=== PATIENT | male | born 1950 | race Caucasian/White ===

== ENCOUNTER → 2017-01-06 | Outpatient (CLI) | payer MEDICARE ==
[~2017-01-06] MED LIST: AMLO10TA2 PO; AMOX1TAB64 PO; CIPR500T3 PO; FLUO20CA8 PO; FLUO20TA25 PO; GADOBUTROL 7.5 MMOL/7.5 ML VIAL ONE; HYDR-3240 PO; HYDR-3241 PO; HYDR-882 PO; LISI40TA PO; LISI5TAB7 PO; METR500T PO; NONE PER PT; OXYC-302 PO; POLY17PO5 PO
== END | disposition home or self-care (01) ==
LOC: CFH 13:24
PROVIDERS: ATTEND Nurse Practitioner
DX: I67.82 Cerebral ischemia (principal); G31.89 Other specified degenerative diseases of nervous system; G93.89 Other specified disorders of brain; R90.82 White matter disease, unspecified
CPT/HCPCS: 70553; A9585

== ENCOUNTER 2017-02-01 13:55 | Inpatient (IN) | payer MEDICARE ==
[~2017-02-01] VITALS: Ht 180.3 cm; Wt 73.6 kg
[~2017-02-01 13:55] MED LIST changes: -GADOBUTROL 7.5 MMOL/7.5 ML VIAL ONE
[2017-02-01] MEDS ORDERED: ONDANSETRON 2MG/ML, 2ML IVPush ONE ×2 (14:00→16:00)
[2017-02-01] MEDS ORDERED: SODIUM CHLORIDE FLUSH 10ML SYR IVF ONE ×2 (14:00→16:00)
[2017-02-01 14:29] LABS: HEMATOCRIT 49.5 % (39.2-51.8); HEMOGLOBIN 16.6 g/dL (13.7-18.0); WHITE BLOOD COUNT 9.7 x10^3/uL (3.4-10)
[2017-02-01] MEDS ORDERED: ONDANSETRON 2MG/ML, 2ML ONE ×2 (14:30→16:04)
[2017-02-01] MEDS ORDERED: PLEASE ENTER HEIGHT AND WEIGHT MC SCH (14:30)
[2017-02-01] MEDS ORDERED: HYDROmorphone 1 MG/ML, 1ML ONE ×3 (14:31→18:14)
[2017-02-01 14:37] LABS: ASPARTATE AMINO TRANSFERASE 14 U/L (15-37); BLOOD UREA NITROGEN 30 mg/dL (7-18)
[2017-02-01] MEDS: HYDROmorphone 1 MG/ML, 1ML IVPush PRN ×4 (14:37→22:21)
[2017-02-01] MEDS ORDERED: SODIUM CHLORIDE 0.9% 1,000ML IVBOLUS ONE ×2 (15:30→16:00)
[2017-02-01] MEDS ORDERED: SODIUM CHLORIDE 0.9% 1,000 ML IV ONE (15:46)
[2017-02-01] MEDS ORDERED: POTASSIUM CHLORIDE 20 MEQ in LACTATED RINGERS 1,000 ML IV SCH (17:30)
[2017-02-01 20:10] VITALS: BP 140/94
[2017-02-01] MEDS: ONDANSETRON 2MG/ML, 2ML IVPush PRN (20:59)
[2017-02-02] MEDS: HYDROmorphone 1 MG/ML, 1ML IVPush PRN ×5 (02:29→18:47)
[2017-02-02] MEDS: ONDANSETRON 2MG/ML, 2ML IVPush PRN ×3 (02:56→15:33)
[2017-02-02 03:00] VITALS: BP 142/95
[2017-02-02 05:59] LABS: HEMATOCRIT 43.3 % (39.2-51.8); HEMOGLOBIN 14.5 g/dL (13.7-18.0); WHITE BLOOD COUNT 8.4 x10^3/uL (3.4-10)
[2017-02-02 06:14] LABS: BLOOD UREA NITROGEN 39 mg/dL (7-18)
[2017-02-02 08:04] VITALS: BP 127/74
[2017-02-02] MEDS: LACTATED RINGERS 1,000 ML IV SCH ×2 (10:30→21:06)
[2017-02-02 13:13] VITALS: BP 135/81
[2017-02-02] MEDS: ACETAMINOPHEN 325 MG TABLET PO PRN (17:43)
[2017-02-02 18:52] VITALS: BP 138/79
[2017-02-02] MEDS ORDERED: ONDANSETRON 2MG/ML, 2ML IVPush PRN (21:00)
[2017-02-02] MEDS: HYDROmorphone 1 MG/ML, 1ML IV PRN (21:47)
[2017-02-03] MEDS: HYDROmorphone 1 MG/ML, 1ML IV PRN ×8 (01:53→20:46)
[2017-02-03 02:00] VITALS: BP 127/72
[2017-02-03 04:57] LABS: HEMATOCRIT 37.8 % (39.2-51.8); HEMOGLOBIN 12.4 g/dL (13.7-18.0); WHITE BLOOD COUNT 3.5 x10^3/uL (3.4-10)
[2017-02-03 05:08] LABS: BLOOD UREA NITROGEN 25 mg/dL (7-18)
[2017-02-03 06:55] VITALS: BP 133/82
[2017-02-03] MEDS: LACTATED RINGERS 1,000 ML IV SCH ×2 (07:17→16:30)
[2017-02-03 13:52] VITALS: BP 136/79
[2017-02-03 19:53] VITALS: BP 152/88
[2017-02-04] MEDS: HYDROmorphone 1 MG/ML, 1ML IV PRN ×3 (00:06→04:56)
[2017-02-04 01:55] VITALS: BP 128/72
[2017-02-04] MEDS: LACTATED RINGERS 1,000 ML IV SCH (02:55)
[2017-02-04] MEDS: ACETAMINOPHEN 325 MG TABLET PO PRN (04:59)
[2017-02-04 05:39] LABS: HEMATOCRIT 35.8 % (39.2-51.8); HEMOGLOBIN 12.1 g/dL (13.7-18.0); WHITE BLOOD COUNT 3.7 x10^3/uL (3.4-10)
[2017-02-04 05:50] LABS: BLOOD UREA NITROGEN 14 mg/dL (7-18)
[2017-02-04 06:37] VITALS: BP 154/87
[2017-02-04 12:37] VITALS: BP 145/60
== END 2017-02-04 12:50 | disposition home or self-care (01) | DRG 388 ==
LOC: ED 16:03 → EDIP 17:18 → 4NOR 18:42
PROVIDERS: ADMIT Colon & Rectal Surgery; ATTEND Colon & Rectal Surgery
DX: K56.60 Unspecified intestinal obstruction (principal); N17.0 Acute kidney failure with tubular necrosis; E86.0 Dehydration; I10 Essential (primary) hypertension; K66.0 Peritoneal adhesions (postprocedural) (postinfection); N28.9 Disorder of kidney and ureter, unspecified; F32.9 Major depressive disorder, single episode, unspecified; Z91.041 Radiographic dye allergy status
CPT/HCPCS: 36415; 74176; 80048; 80053; 81001; 83690; 83735; 85025; 93005; 96361; 96374; 96375; 96376; J1170; J2405; J3480; J7030; J7120

== ENCOUNTER → 2017-02-08 | Outpatient (CLI) | payer MEDICARE ==
[~2017-02-08] MED LIST changes: +OMNIPAQUE 350 MG/ML, 100ML BOTTLE ONE
== END | disposition home or self-care (01) ==
LOC: CFH 14:13
PROVIDERS: ATTEND Physician Assistant Medical
DX: K44.9 Diaphragmatic hernia without obstruction or gangrene (principal); N28.1 Cyst of kidney, acquired; K82.0 Obstruction of gallbladder; M47.896 Other spondylosis, lumbar region; M41.86 Other forms of scoliosis, lumbar region
CPT/HCPCS: 74177; Q9967

== ENCOUNTER 2017-03-04 08:24 | Observation (INO) | payer MEDICARE ==
[~2017-03-04] VITALS: Ht 172.7 cm; Wt 70.0 kg
[~2017-03-04 08:24] MED LIST changes: +BUPIVACAINE/PF 0.5% ONE; -OMNIPAQUE 350 MG/ML, 100ML BOTTLE ONE
[2017-03-04] MEDS ORDERED: LACTATED RINGERS 1,000 ML IV SCH (08:44)
[2017-03-04] MEDS ORDERED: MIDAZOLAM 1 MG/ML, 2ML ONE (09:31)
[2017-03-04] MEDS ORDERED: FENTANYL PF 100 MCG/2ML ONE ×2 (09:31→11:14)
[2017-03-04] MEDS ORDERED: PROPOFOL 10 MG/ML, 20ML ONE (10:24)
[2017-03-04] MEDS ORDERED: KETOROLAC 30 MG/1 ML ONE (10:24)
[2017-03-04] MEDS ORDERED: ONDANSETRON 2MG/ML, 2ML ONE ×2 (10:24→11:20)
[2017-03-04] MEDS ORDERED: SUCCINYLCHOLINE 20 MG/ML, 10ML ONE (10:24)
[2017-03-04] MEDS ORDERED: DEXAMETHASONE 4 MG/ML, 1ML ONE (10:24)
[2017-03-04] MEDS ORDERED: HYDROmorphone 2 MG/ML, 1ML ONE ×2 (10:43→11:30)
[2017-03-04] MEDS ORDERED: MEPERIDINE/PF 25MG/0.5ML IVPush PRN (11:00)
[2017-03-04] MEDS ORDERED: PROMETHAZINE 25 MG/ML, 1ML IV PRN (11:00)
[2017-03-04] MEDS ORDERED: OXYcodone 5 MG/5 ML ORAL.SOL UDC PO PRN (11:00)
[2017-03-04] MEDS ORDERED: ALBUTEROL/IPRATROPIUM 2.5MG/0.5MG, 3 ML NPPB PRN (11:00)
[2017-03-04] MEDS ORDERED: LABETALOL 5MG/ML, 20ML IV PRN (11:00)
[2017-03-04] MEDS ORDERED: MIDAZOLAM 1 MG/ML, 2ML IV PRN (11:00)
[2017-03-04] MEDS ORDERED: hydrALAzine 20 MG/ML, 1ML IV PRN (11:00)
[2017-03-04] MEDS ORDERED: ACETAMINOPHEN 325 MG TABLET PO PRN (11:00)
[2017-03-04] MEDS ORDERED: ONDANSETRON 2MG/ML, 2ML IVPush PRN ×2 (11:00→13:30)
[2017-03-04] MEDS ORDERED: OXYcodone 5 MG/5 ML ORAL.SOL UDC ONE (11:14)
[2017-03-04] MEDS ORDERED: ACETAMINOPHEN 650 MG/20.3 ML UDC ONE (11:14)
[2017-03-04] MEDS: FENTANYL PF 100 MCG/2ML IV PRN ×2 (11:18→11:25)
[2017-03-04] MEDS: HYDROmorphone 1 MG/ML, 1ML IV PRN ×2 (11:34→11:42)
[2017-03-04 13:00] VITALS: BP 128/83
[2017-03-04] MEDS ORDERED: DIPHENHYDRAMINE 50 MG/ML, 1ML IVPush PRN (13:30)
[2017-03-04] MEDS: MORPHINE SULFATE 4 MG/ML, 1ML IVPush PRN ×2 (14:50→19:39)
[2017-03-04] MEDS: OXYcodone/APAP 5/325MG TABLET PO PRN ×2 (15:52→20:29)
[2017-03-04] MEDS: KETOROLAC 30 MG/1 ML IV PRN ×2 (17:13→23:08)
[2017-03-04 19:57] VITALS: BP 123/78
[2017-03-05 00:08] VITALS: BP 131/83
[2017-03-05] MEDS: OXYcodone/APAP 5/325MG TABLET PO PRN ×3 (00:30→08:43)
[2017-03-05 04:14] VITALS: BP 105/66
[2017-03-05] MEDS: KETOROLAC 30 MG/1 ML IV PRN (05:36)
[2017-03-05 08:10] VITALS: BP 128/73
[2017-03-05] MEDS ORDERED: OXYC-302 PO (08:46)
[2017-03-05] MEDS ORDERED: POLY17PO5 PO (08:47)
[2017-03-05] MEDS ORDERED: ENOXAPARIN 40 MG/0.4 ML SQ SCH (09:00)
== END 2017-03-05 09:45 | disposition home or self-care (01) ==
LOC: OUT 08:24 → 4NOR 12:46 → OUT 12:59
PROVIDERS: ADMIT Colon & Rectal Surgery; ATTEND Colon & Rectal Surgery
DX: K43.9 Ventral hernia without obstruction or gangrene (principal); K57.30 Diverticulosis of large intestine without perforation or abscess without bleeding; R19.7 Diarrhea, unspecified; I10 Essential (primary) hypertension; Z96.659 Presence of unspecified artificial knee joint; Z98.890 Other specified postprocedural states; Z86.73 Personal history of transient ischemic attack (TIA), and cerebral infarction without residual deficits
CPT/HCPCS: 49560; 49568; 96372; 96374; 96375; 96376; C1781; G0378; J0330; J1100; J1170; J1650; J1885; J2250; J2405; J2704; J3010; J3490

== ENCOUNTER → 2017-07-21 | Outpatient (CLI) | payer MEDICARE ==
[~2017-07-21] MED LIST changes: -BUPIVACAINE/PF 0.5% ONE
== END | disposition home or self-care (01) ==
LOC: CFH 10:03
PROVIDERS: ATTEND Orthopaedic Surgery Sports Medicine
DX: M86.8X8 Other osteomyelitis, other site (principal); M00.80 Arthritis due to other bacteria, unspecified joint

== ENCOUNTER 2017-07-24 10:11 | Inpatient (IN) | payer MEDICARE ==
[~2017-07-24] VITALS: Ht 170.2 cm; Wt 72.4 kg
[2017-07-24] MEDS ORDERED: CEFAZOLIN PMX 1GM/50ML 50 ML IVPB ONE (11:00)
[2017-07-24 11:06] VITALS: BP 132/79
[2017-07-24 11:08] VITALS: BP 132/79
[2017-07-24] MEDS ORDERED: MIDAZOLAM 1 MG/ML, 2ML ONE (12:33)
[2017-07-24] MEDS ORDERED: FENTANYL PF 100 MCG/2ML ONE ×3 (12:33→14:13)
[2017-07-24] MEDS ORDERED: KETOROLAC 30 MG/1 ML ONE (12:59)
[2017-07-24] MEDS ORDERED: EPINEPHRINE 1 MG/ML, 1ML ONE (13:17)
[2017-07-24] MEDS ORDERED: BUPIVACAINE/PF 0.5% ONE (13:17)
[2017-07-24] MEDS ORDERED: BUPIVACAINE/PF-EPI 0.5% 1:200K IM ONE (13:18)
[2017-07-24] MEDS ORDERED: VANCOMYCIN 1,000 MG ONE (13:23)
[2017-07-24] MEDS ORDERED: LABETALOL 5MG/ML, 20ML IV PRN (13:30)
[2017-07-24] MEDS ORDERED: FENTANYL PF 100 MCG/2ML IV PRN (13:30)
[2017-07-24] MEDS ORDERED: ACETAMINOPHEN 325 MG TABLET PO PRN (13:30)
[2017-07-24] MEDS ORDERED: ALBUTEROL SULFATE 2.5 MG/3 ML NPPB PRN (13:30)
[2017-07-24] MEDS ORDERED: ONDANSETRON 2MG/ML, 2ML IVPush PRN (13:30)
[2017-07-24] MEDS ORDERED: MEPERIDINE/PF 25MG/0.5ML IVPush PRN (13:30)
[2017-07-24] MEDS ORDERED: PROMETHAZINE 25 MG/ML, 1ML IV PRN (13:30)
[2017-07-24] MEDS ORDERED: EPHEDRINE 50 MG/ML, 1ML IVPush PRN (13:30)
[2017-07-24] MEDS ORDERED: DIAZEPAM 5 MG/ML, 2ML IVPush PRN (13:30)
[2017-07-24] MEDS ORDERED: METOPROLOL 1 MG/ML, 5ML IV PRN (13:30)
[2017-07-24] MEDS ORDERED: hydrALAzine 20 MG/ML, 1ML IV PRN (13:30)
[2017-07-24] MEDS ORDERED: HYDROcodone/APAP 7.5-325MG/15ML UDC PO PRN (13:30)
[2017-07-24] MEDS ORDERED: OXYcodone 5 MG/5 ML ORAL.SOL UDC PO PRN (13:30)
[2017-07-24] MEDS ORDERED: MIDAZOLAM 1 MG/ML, 2ML IV PRN (13:30)
[2017-07-24] MEDS ORDERED: CEFAZOLIN 1,000 MG ONE (13:34)
[2017-07-24] MEDS ORDERED: ONDANSETRON 2MG/ML, 2ML ONE (13:34)
[2017-07-24] MEDS ORDERED: DEXAMETHASONE 4 MG/ML, 1ML ONE (13:34)
[2017-07-24] MEDS ORDERED: PROPOFOL 10 MG/ML, 20ML ONE (13:34)
[2017-07-24] MEDS ORDERED: OXYcodone 5 MG/5 ML ORAL.SOL UDC ONE (14:12)
[2017-07-24] MEDS ORDERED: HYDROmorphone 2 MG/ML, 1ML ONE (14:37)
[2017-07-24] MEDS: HYDROmorphone 1 MG/ML, 1ML IV PRN ×3 (14:40→15:01)
[2017-07-24 15:40] VITALS: BP 151/85
[2017-07-24] MEDS ORDERED: POLYETHYLENE GLYCOL 17 GM PACKET PO PRN (16:00)
[2017-07-24] MEDS: OXYcodone/APAP 5/325MG TABLET PO PRN ×2 (16:55→23:12)
[2017-07-24] MEDS ORDERED: D5%-0.45NACL+KCL 40MEQ 1,000 ML IV SCH (18:00)
[2017-07-24] MEDS ORDERED: VANCOMYCIN PER PHARMACY MC PRN (18:00)
[2017-07-24] MEDS ORDERED: morphine SULFATE 10 MG/ML, 1ML IVPush PRN (18:00)
[2017-07-24] MEDS ORDERED: ONDANSETRON 2MG/ML, 2ML IV PRN (18:30)
[2017-07-24] MEDS ORDERED: OXYcodone/APAP 5/325MG TABLET PO PRN (18:30)
[2017-07-24 18:50] LABS: BASOPHILS # (AUTO) 0.01 x10^3/uL (0-0.1); BASOPHILS % (AUTO) 0 % (0-1); EOSINOPHILS % (AUTO) 0 % (1-7); LYMPHOCYTES % (AUTO) 6 % (22-44); MD NO; MEAN CORPUSCULAR HGB CONC 33.6 g/dL (33.2-36.2); MEAN CORPUSCULAR VOLUME 86.5 fL (81-97); MEAN PLATELET VOLUME 7.4 fL (7.4-10.4); MONOCYTES # (AUTO) 0.07 x10^3/uL (0.2-0.8); MONOCYTES % (AUTO) 2 % (2-9); NEUTROPHILS # (AUTO) 3.01 x10^3/uL (1.8-6.8); NEUTROPHILS % (AUTO) 92 % (42-75); PLATELET COUNT 280 x10^3/uL (130-400); RED BLOOD COUNT 4.68 x10^6/uL (4.38-5.82); RED CELL DISTRIBUTION WIDTH 14.2 % (9.4-14.8)
[2017-07-24] MEDS ORDERED: PHARMACOKINETIC MONITORING MC PRN (19:00)
[2017-07-24] MEDS ORDERED: PHARMACOKINETIC CONSULTATION MC ONE (19:00)
[2017-07-24 19:44] VITALS: BP 131/72
[2017-07-24 20:11] LABS: HCT (SEDRATE) 40.5 % (39.2-51.8)
[2017-07-24] MEDS: SODIUM CHLORIDE FLUSH 10ML SYR IVF SCH (21:00)
[2017-07-24] MEDS ORDERED: SODIUM CHLORIDE FLUSH 10ML SYR IVF SCH (21:00)
[2017-07-24] MEDS: morphine SULFATE 10 MG/ML, 1ML IV PRN ×2 (21:25→21:42)
[2017-07-24] MEDS: VANCOMYCIN 1,400 MG in SODIUM CHLORIDE 0.9% 250 ML IV SCH (21:44)
[2017-07-24] MEDS: POTASSIUM CHLORIDE 40 MEQ in D5%-0.45% NACL 1,000 ML IV SCH (22:00)
[2017-07-25 00:12] VITALS: BP 110/64
[2017-07-25] MEDS: morphine SULFATE 10 MG/ML, 1ML IV PRN ×6 (03:52→20:05)
[2017-07-25] MEDS: OXYcodone/APAP 5/325MG TABLET PO PRN ×4 (03:53→18:06)
[2017-07-25 04:26] VITALS: BP 120/66
[2017-07-25 05:49] LABS: CREATININE 1.38 mg/dL (0.7-1.3)
[2017-07-25 06:54] VITALS: BP 124/80
[2017-07-25] MEDS ORDERED: LISINOPRIL 20 MG TABLET ONE (07:44)
[2017-07-25] MEDS ORDERED: AMLODIPINE 5 MG TABLET ONE (07:44)
[2017-07-25] MEDS ORDERED: FLUOXETINE 20 MG CAPSULE ONE (07:44)
[2017-07-25] MEDS: LISINOPRIL 20 MG TABLET PO SCH (07:52)
[2017-07-25] MEDS: AMLODIPINE 5 MG TABLET PO SCH (07:52)
[2017-07-25] MEDS: FLUOXETINE 20 MG CAPSULE PO SCH (07:52)
[2017-07-25] MEDS: SODIUM CHLORIDE FLUSH 10ML SYR IVF SCH ×2 (07:53→21:00)
[2017-07-25] MEDS: POTASSIUM CHLORIDE 40 MEQ in D5%-0.45% NACL 1,000 ML IV SCH (11:37)
[2017-07-25 15:26] VITALS: BP 136/74
[2017-07-25 19:00] VITALS: BP 134/83
[2017-07-25] MEDS: VANCOMYCIN 1,400 MG in SODIUM CHLORIDE 0.9% 250 ML IV SCH (22:13)
[2017-07-26] MEDS: POTASSIUM CHLORIDE 40 MEQ in D5%-0.45% NACL 1,000 ML IV SCH ×2 (01:12→13:34)
[2017-07-26] MEDS: OXYcodone/APAP 5/325MG TABLET PO PRN ×2 (01:46→21:53)
[2017-07-26 01:57] VITALS: BP 133/71
[2017-07-26 08:15] VITALS: BP 138/80
[2017-07-26] MEDS ORDERED: ONDANSETRON 2MG/ML, 2ML IVPush PRN (08:30)
[2017-07-26] MEDS: FLUOXETINE 20 MG CAPSULE PO SCH (09:00)
[2017-07-26] MEDS ORDERED: OMEPRAZOLE 20 MG CAPSULE.DR ONE (09:58)
[2017-07-26] MEDS: OMEPRAZOLE 20 MG CAPSULE.DR PO SCH (10:04)
[2017-07-26] MEDS ORDERED: OMEP-110 PO (10:39)
[2017-07-26] MEDS: SODIUM CHLORIDE FLUSH 10ML SYR IVF SCH ×2 (10:51→21:53)
[2017-07-26] MEDS: AMLODIPINE 5 MG TABLET PO SCH (10:52)
[2017-07-26] MEDS: LISINOPRIL 20 MG TABLET PO SCH (10:53)
[2017-07-26 13:24] VITALS: BP 166/78
[2017-07-26 19:23] VITALS: BP 118/66
[2017-07-27 02:16] VITALS: BP 117/66
[2017-07-27] MEDS: OXYcodone/APAP 5/325MG TABLET PO PRN ×4 (05:24→18:22)
[2017-07-27 07:29] VITALS: BP 118/82
[2017-07-27] MEDS: POTASSIUM CHLORIDE 40 MEQ in D5%-0.45% NACL 1,000 ML IV SCH ×2 (07:35→17:41)
[2017-07-27] MEDS: FLUOXETINE 20 MG CAPSULE PO SCH (08:18)
[2017-07-27] MEDS: LISINOPRIL 20 MG TABLET PO SCH (08:18)
[2017-07-27] MEDS: SODIUM CHLORIDE FLUSH 10ML SYR IVF SCH ×2 (08:18→20:28)
[2017-07-27] MEDS: AMLODIPINE 5 MG TABLET PO SCH (08:19)
[2017-07-27] MEDS: OMEPRAZOLE 20 MG CAPSULE.DR PO SCH (08:19)
[2017-07-27] MEDS ORDERED: OMEPRAZOLE 20 MG CAPSULE.DR PO SCH (08:30)
[2017-07-27] MEDS: ERTAPENEM 1 GM in SODIUM CHLORIDE 0.9% 50 ML IV SCH (10:17)
[2017-07-27 13:33] VITALS: BP 138/82
[2017-07-27 19:43] VITALS: BP 131/69
[2017-07-28 02:32] VITALS: BP 160/88
[2017-07-28] MEDS: OXYcodone/APAP 5/325MG TABLET PO PRN ×5 (02:33→22:10)
[2017-07-28 07:30] VITALS: BP 153/85
[2017-07-28] MEDS: POTASSIUM CHLORIDE 40 MEQ in D5%-0.45% NACL 1,000 ML IV SCH ×2 (07:36→21:12)
[2017-07-28] MEDS: OMEPRAZOLE 20 MG CAPSULE.DR PO SCH (08:24)
[2017-07-28] MEDS: AMLODIPINE 5 MG TABLET PO SCH (08:25)
[2017-07-28] MEDS: FLUOXETINE 20 MG CAPSULE PO SCH (08:25)
[2017-07-28] MEDS: LISINOPRIL 20 MG TABLET PO SCH (08:25)
[2017-07-28] MEDS: ERTAPENEM 1 GM in SODIUM CHLORIDE 0.9% 50 ML IV SCH (08:30)
[2017-07-28] MEDS: SODIUM CHLORIDE FLUSH 10ML SYR IVF SCH ×2 (08:31→22:10)
[2017-07-28 14:24] VITALS: BP 156/93
[2017-07-28 19:57] VITALS: BP 139/90
[2017-07-29 00:24] VITALS: BP 118/80
[2017-07-29 07:50] VITALS: BP 123/79
[2017-07-29] MEDS: OXYcodone/APAP 5/325MG TABLET PO PRN ×3 (07:52→16:08)
[2017-07-29] MEDS: OMEPRAZOLE 20 MG CAPSULE.DR PO SCH (07:52)
[2017-07-29] MEDS: AMLODIPINE 5 MG TABLET PO SCH (07:52)
[2017-07-29] MEDS: FLUOXETINE 20 MG CAPSULE PO SCH (07:53)
[2017-07-29] MEDS: SODIUM CHLORIDE FLUSH 10ML SYR IVF SCH (07:53)
[2017-07-29 09:30] VITALS: BP 126/77
[2017-07-29] MEDS: ERTAPENEM 1 GM in SODIUM CHLORIDE 0.9% 50 ML IV SCH (09:31)
[2017-07-29] MEDS: LISINOPRIL 20 MG TABLET PO SCH (09:31)
[2017-07-29] MEDS: POTASSIUM CHLORIDE 40 MEQ in D5%-0.45% NACL 1,000 ML IV SCH (10:48)
[2017-07-29 12:45] VITALS: BP 103/58
[2017-07-29] MEDS ORDERED: OXYC5TAB3 PO (16:05)
[2017-07-29] MEDS ORDERED: ERTA1VIA IV (17:21)
[2017-07-29 18:20] VITALS: BP 125/76
== END 2017-07-29 19:03 | disposition home health service (06) | DRG 513 ==
LOC: OUT 10:11 → 4NOR 10:20 → OUT 21:51 → OBSVTOIN 07-25 11:21
PROVIDERS: ADMIT Orthopaedic Surgery; ATTEND Orthopaedic Surgery
PROC: 0LQ80ZZ Repair Left Hand Tendon, Open Approach (ICD-10-PCS; 2017-07-24)
PROC: 0PBV0ZZ Excision of Left Finger Phalanx, Open Approach (ICD-10-PCS; 2017-07-24)
PROC: 3E0V329 Introduction of Other Anti-infective into Bones, Percutaneous Approach (ICD-10-PCS; 2017-07-24)
PROC: 0PCV0ZZ Extirpation of Matter from Left Finger Phalanx, Open Approach (ICD-10-PCS; principal; 2017-07-24 12:30)
PROC: 02HV33Z Insertion of Infusion Device into Superior Vena Cava, Percutaneous Approach (ICD-10-PCS; 2017-07-26)
PROC: B5181ZA Fluoroscopy of Superior Vena Cava using Low Osmolar Contrast, Guidance (ICD-10-PCS; 2017-07-26)
PROC: B548ZZA Ultrasonography of Superior Vena Cava, Guidance (ICD-10-PCS; 2017-07-26)
DX: M00.042 Staphylococcal arthritis, left hand (principal); M86.642 Other chronic osteomyelitis, left hand; B95.61 Methicillin susceptible Staphylococcus aureus infection as the cause of diseases classified elsewhere; I10 Essential (primary) hypertension; Z96.653 Presence of artificial knee joint, bilateral; S66.311A Strain of extensor muscle, fascia and tendon of left index finger at wrist and hand level, initial encounter; X58.XXXA Exposure to other specified factors, initial encounter; Y93.89 Activity, other specified; Z71.89 Other specified counseling; Y92.89 Other specified places as the place of occurrence of the external cause; Y99.8 Other external cause status
CPT/HCPCS: 36415; 36569; 76937; 77001; 82565; 84520; 85025; 85651; 86140; 87040; 87070; 87075; 87077; 87186; 87205; 93005; C1713; G0378; J0171; J0690; J1100; J1170; J1335; J1885; J2250; J2405; J2704; J3010; J3370; J3480; J3490; C1751; J2270; J7050